=== PATIENT | male | born 1955 | race Caucasian/White ===

== ENCOUNTER 2021-09-10 02:58 | Outpatient (RCR) | payer MEDICARE, SELFPAY | END 2021-10-06 23:59 | disposition home or self-care (01) | LOC: INF 02:58 | PROVIDERS: PCP Family Medicine; Visit Provider Family Medicine | DX: Z92.25 Personal history of immunosuppression therapy (principal) | CPT/HCPCS: 96372; Q0221 ==

== ENCOUNTER 2021-10-22 02:12 | Outpatient (RCR) | payer MEDICARE, SELFPAY | END 2021-11-06 23:59 | disposition home or self-care (01) | LOC: INF 02:12 | PROVIDERS: PCP Family Medicine; Visit Provider Family Medicine | DX: Z92.25 Personal history of immunosuppression therapy (principal) | CPT/HCPCS: 96372; Q0221 ==